=== PATIENT | female | born 1975 | race African-American/Black ===

== ENCOUNTER 2023-03-29 11:43 | Emergency (ER) | payer MEDICAID ==
[~2023-03-29] VITALS: Ht 165.1 cm; Wt 114.0 kg
[2023-03-29 12:41] LABS: BASOPHILS % 0.7 % (0.0-2.0); EOSINOPHILS % 1.2 % (0.0-5.0); HEMATOCRIT. 40.9 % (36.0-48.0); HEMOGLOBIN. 13.8 g/dL (12.0-16.0); LYMPHOCYTES % 13.9 % (20.0-50.0); MEAN CORPUSCULAR HEMOGLOBIN 31.6 pg (28.0-32.0); MEAN CORPUSCULAR VOLUME 93.3 fL (81.0-99.0); MEAN PLATELET VOLUME 8.1 fl (7.4-10.4); MONOCYTES % 6.6 % (2.0-8.0); NEUTROPHILS % 77.6 % (40.0-76.0); PLATELET 251 x1000/uL (130-400); RED BLOOD CELL COUNT 4.38 mill/uL (4.2-5.4); RED CELL DISTRIBUTION WIDTH 14.8 % (11.6-14.6)
[2023-03-29 12:50] LABS: CHLORIDE 107 mEq/L (98-107)
[2023-03-29 14:45] VITALS: BP 189/98
[2023-03-29] MEDS ORDERED: KETOROLAC 30MG/ML VIAL IM ONE (14:45)
[2023-03-29 15:15] LABS: CLARITY URINE CLOUDY (CLEAR); COLOR URINE DARK YELLOW (YELLOW); KETONES URINE 1+ (NEGATIVE); LEUKOCYTE ESTERASE URINE 2+ (NEGATIVE); NITRITE URINE POSITIVE (NEGATIVE); OCCULT BLOOD URINE 1+ (NEGATIVE); PH URINE 5.5 (4.5-8.0); PROTEIN URINE 1+ (NEGATIVE); SPECIFIC GRAVITY URINE 1.033 (1.005-1.030)
[2023-03-29] MEDS ORDERED: CEPH500C2 MT (15:51)
[2023-03-29] MEDS ORDERED: IBUP-2029 MT (15:51)
[2023-03-29] MEDS ORDERED: CEPHALEXIN 250MG CAPSULE PO ONE (16:00)
== END 2023-03-29 16:30 | disposition home or self-care (01) ==
LOC: ER 11:43
DX: N93.9 Abnormal uterine and vaginal bleeding, unspecified (principal); R10.2 Pelvic and perineal pain; G43.909 Migraine, unspecified, not intractable, without status migrainosus
CPT/HCPCS: 36415; 76856; 80053; 81003; 81025; 83690; 85025; 87086; 87186; 93005; 96372; 99285; J1885; 99284